=== PATIENT | male | born 1985 | race Two or more races ===

== ENCOUNTER 2017-11-20 06:10 | Emergency (ER) | payer MEDICAID ==
[~2017-11-20] VITALS: Ht 182.9 cm; Wt 90.7 kg
[2017-11-20 06:24] VITALS: BP 150/86
== END 2017-11-20 06:25 | disposition left against medical advice (07) ==
LOC: ER 06:10
DX: Z02.89 Encounter for other administrative examinations (principal); Z53.21 Procedure and treatment not carried out due to patient leaving prior to being seen by health care provider